=== PATIENT | female | born 1940 | race Caucasian/White ===

== ENCOUNTER 2020-01-17 09:49 | Emergency (ER) | payer OTHER, SELFPAY ==
--- NOTE | ~2020-01-17 | XR_ITS ---
EXAMINATION: XR chest 1V portable DATE: 01/17/2020 11:54 INDICATION: Altered mental status. Fall. TECHNIQUE: A single frontal view of the chest was obtained. COMPARISON: None. FINDINGS: There is mild scarring at the lung apices. The lungs are hyperexpanded with a diffuse inter stitial pattern, consistent with emphysema. There is a left hilar mass. No pleural effusion or pneumo thorax. The heart size is normal. IMPRESSION: 1. Left hilar mass suspicious for primary bronchogenic carcinoma. Chest CT is recommended. I called t his result to Dr. Villaseñor on 01/17/20 at 11:58 AM. Reviewed, dictated and finalized at location E. IMPRESSION: 1. Left hilar mass suspicious for primary bronchogenic carcinoma. Chest CT is r ecommended. I called this result to Dr. Villaseñor on 01/17/20 at 11:58 AM.
--- NOTE | ~2020-01-17 | XR_ITS ---
EXAMINATION: XR pelvis 1-2V DATE: 01/17/2020 11:54 INDICATION: Patient found down post unwitnessed fall with wounds on her back and right leg. Altered m ental status and unable to answer questions. TECHNIQUE: An anteroposterior view of the pelvis was obtained. COMPARISON: None. FINDINGS: Mild lower lumbar levocurvature with severe spondylosis. Normal alignment in the pelvis and bilateral hips. No fracture. Soft tissues are unremarkable. IMPRESSION: 1. No acute osseous abnormality. 2. Mild lower lumbar levocurvature with severe spondylosis. Reviewed, dictated and finalized at location A.
--- NOTE | ~2020-01-17 | CT_ITS ---
EXAMINATION: CT cervical spine wo con DATE: 01/17/2020 12:09 INDICATION: Neck injury. Fall. TECHNIQUE: Computed tomography (CT) of the cervical spine was performed without intravenous contrast. Automated exposure control and iterative reconstruction technique were employed. The dose-length pro duct was 101.23 mGy-cm. COMPARISON: Cervical spine radiographs 01/28/2014 FINDINGS: The visualized portions of the lung bases demonstrate emphysema. There is scarring at the l scot apices, right worse than left. There is a left mastoid effusion. C1 ring is ununited posteriorly, a normal variant. There is 5 degrees levocurvature of cervical spine. There is 3 mm anterolisthesis of C3 on C4 and 4 mm anterolisthesis of C4 on C5. Vertebral body heights are normal. There is mildly decreased disc height at C2-C3, C3-C4, and C4-C5. There is severely decreased disc height at C5-C6 an d C6-C7 with endplate remodeling. The following disc levels are specifically discussed: C2-C3: There is mild bilateral uncovertebral joint osteoarthritis. There is severe bilateral facet jabari int osteoarthritis. There is mild left neural foraminal stenosis. There is no central canal stenosis. C3-C4: There is mild bilateral uncovertebral joint osteoarthritis. There is severe bilateral facet jabari int osteoarthritis. There is mild left neural foraminal stenosis. There is mild central canal stenosi s. C4-C5: There is moderate bilateral uncovertebral joint osteoarthritis. There is severe bilateral face t joint osteoarthritis. There is mild bilateral neural foraminal stenosis. There is mild central gayle l stenosis. C5-C6: There is severe bilateral uncovertebral joint osteoarthritis. There is mild right and moderate left facet joint osteoarthritis. There is mild right and moderate left neural foraminal stenosis. Th ere is mild central canal stenosis. C6-C7: There is severe bilateral uncovertebral joint osteoarthritis. There is moderate bilateral face t joint osteoarthritis. There is mild bilateral neural foraminal stenosis. There is mild central gayle l stenosis. C7-T1: There is no uncovertebral joint osteoarthritis. There is severe bilateral facet joint osteoart hritis. There is mild left neural foraminal stenosis. There is no central canal stenosis. IMPRESSION: 1. No fracture. 2. Severe cervical spondylosis. 3. Emphysema. Reviewed, dictated and finalized at location E.
--- NOTE | ~2020-01-17 | CT_ITS ---
EXAMINATION: CT brain wo con DATE: 01/17/2020 12:08 INDICATION: Fall. TECHNIQUE: Computed tomography (CT) of the head was performed without intravenous contrast. The mA wa s adjusted according to patient size. Iterative reconstruction technique was employed. Exam dose: 60 5.33 mGy-cm total exam DLP. COMPARISON: None FINDINGS: There is a large up to 4.5 cm wide 5.3 cm anteroposterior dimension intracerebral hematoma involving the left temporal parietal area, with some adjacent hypoattenuation consistent with surroun ding edema. There is some subarachnoid blood on the left. There is associated prominent compression o f the left lateral ventricle and approximately 9 mm rightward subfalcine shift. Additionally, there i s effacement of the cortical sulci particularly high over the convexity. Bilateral carotid siphon internal carotid artery calcifications. There is nonspecific diminished attenuation of the cerebral white matter, likely due to chronic small vessel ischemic changes. No subdural or epidural hematoma. No skull fracture is detected. IMPRESSION: Large left cerebral hematoma with mass effect including up to 9 mm rightward subfalcine shift. There is subarachnoid blood as well. Dr. Ibanez telephoned the results on 01/17/2020 at 1220 hours to emergency room physician Dr. Villaseñor. Reviewed, dictated and finalized at Location [facility]. Reviewed, dictated and finalized at location A. IMPRESSION: Large left cerebral hematoma with mass effect including up to 9 mm rightward subfalcine shift. There is subarachnoid blood as well. Dr. Ibanez telephoned the results on 01/17/2020 at 1220 hours to emergency room ph ysician Dr. Villaseñor.
--- NOTE | 2020-01-17 10:56 | ECG_ITS ---
Measurements Intervals [place] Rate: 92 P: 85 [place]: 124 QRS: 84 QRSD: 110 T: 72 QT: 380 QTc: 472 Interpretive Statements SINUS RHYTHM LEFT ATRIAL ENLARGEMENT INCOMPLETE RIGHT BUNDLE BRANCH BLOCK ST-T WAVE ABNORMALITY IN ANTERIOR LEADS- CONSIDER ISCHEMIA ABNORMAL ECG Electronically Signed On 01-17-2020 11:37:30 CDT by dEy Lucio D.O.
[2020-01-17 11:22] LABS: Alveolar/Arterial O2 Gradient 40.9 mmHg; Base Excess ABG 1.7 mEq/l (+/-2.0); Carboxyhemoglobin 0.8 % THb (0-2.0); Device ROOM AIR; Fractional Inspired Oxygen 21 %; HCO3 ABG 25.4 mEq/l (22.0-26.0); Methemoglobin ABG 0.2 %THb (0-1.5); Oxygen Content ABG 17.7 %vol (16.0-22.0); Oxygen Saturation ABG 93.6 % (95.0-100.0); Oxyhemoglobin 90.4 % THb (90.0-100.0); PCO2 ABG 37.2 mmHg (35.0-45.0); PO2 ABG 64.3 mmHg (80.0-100.0); PO2 FiO2 Ratio Arterial Blood 3.06 %; Reduced Hemoglobin 8.6 %THb (0-5.0); Site Drawn RIGHT BRACHIAL; Total Hemoglobin 13.9 g/dL (12.0-18.0); pH ABG 7.453 (7.350-7.450)
[2020-01-17 11:23] LABS: Basophils Percent Auto 0.2 % (0.2-1.2); Eosinophils Percent Auto 0.1 % (0-4.4); Hematocrit 41.2 % (37.0-47.0); Hemoglobin 13.7 g/dL (12.0-15.0); Immature Granulocyte Absolute 0.49 K/mm3 (0.00-0.031); Immature Granulocyte Percent A 2.7 % (0-0.5); Lymphocytes Absolute Auto 0.98 K/mm3 (0.9-3.2); Lymphocytes Percent Auto 5.3 % (18.3-44.2); Mean Corpuscular HGB Conc 33.3 g/dl (32-36); Mean Corpuscular Hemoglobin 29.2 pg (26-34); Mean Corpuscular Volume 87.8 fl (80-100); Mean Platelet Volume 12.8 fl (7.4-10.4); Monocytes Absolute Auto 1.8 K/mm3 (0.1-0.6); Monocytes Percent Auto 9.6 % (2.6-8.5); Neutrophils Absolute Auto 15.1 K/mm3 (1.3-6.7); Neutrophils Percent Auto 82.1 % (45.5-73.1); Platelet Count Result 260 k/mm3 (150-375); Red Blood Count 4.69 M/mm3 (4.2-5.4); Red Cell Distribution Width 15.3 % (11.5-14.5); White Blood Count 18.4 K/mm3 (4.5-10.0)
[2020-01-17 11:32] LABS: INR 1.1; Prothrombin Time 13.6 Seconds (11.1-14.7)
[2020-01-17 11:33] LABS: Partial Thromboplastin Time 36.2 SECONDS (22.3-36.8)
[2020-01-17 11:37] LABS: Ammonia < 9 umol/L (9-30); Ethanol < 10 mg/dL (<10); Lactic Acid Reflex 2.1 mmol/L (0.7-2.1)
[2020-01-17 11:41] LABS: Alanine Aminotransferase 28 U/L (4-35); Albumin Level 3.8 g/dL (3.5-5.1); Alkaline Phosphatase 117 U/L (38-126); Aspartate Amino Transferase 79 U/L (14-36); Bilirubin,Total 0.5 mg/dL (0.2-1.3); Blood Urea Nitrogen 37 mg/dL (7-17); CRP 8.3 mg/dL (<1.0); Calcium 9.5 mg/dL (8.4-10.2); Carbon Dioxide 24 mmol/L (22-30); Chloride 106 mmol/L (98-107); Creatine Kinase 1513 U/L (30-135); Estimated CRCL calculation 44 ml/min; Estimated Glomerular Filt Rate > 60; Glucose 123 mg/dL (65-105); Magnesium 2.2 mg/dL (1.6-2.3); Potassium 3.9 mmol/L (3.4-5.0); Sodium 135 mmol/L (137-145)
[2020-01-17 11:50] LABS: NT Pro B Type Natriuretic Pept 724 PG/ML (5-100); Troponin I < 0.012 ng/mL (0.000-0.034)
--- NOTE | 2020-01-17 12:19 | ED.FALL ---
HPI - Fall General Chief Complaint: Fall Stated Complaint: WEAKNESS,SLURRED SPEECH Time Seen by Provider: 01/17/20 10:24 Source: EMS Mode of arrival: EMS Limitations: clinical condition History of Present Illness HPI Narrative: This patient is an 79 year old female who presents from home VIA EMS for evaluation of AMS and fall. Patient lives alone and she was last seen on Monday. Her neighbor found patient laying on the floor naked . Patient has slurred speech and right side weakness. PAtient is having aphasia so she is unable to give history. MD complaint: fall Related Data Allergies Allergy/AdvReac Type Severity Reaction Status Date / Time tetracycline Allergy Intermediate Verified 12/18/19 12:29 Review of Systems Review of Systems: ROS unobtainable: Yes unobtainable due to mental status [facility] Social History Social History (System 12/18/19 @ 12:29 by Marianela Flower) Gender identity (if verbalized by the patient): Female Comments Medical history unknown, Surgical history unknown. I spoke with a neighbor who states she has not kids and she has never been . Exam Const: General: no acute distress and alert Nutritional Appearance: thin HENMT: Head: No palpable skull fracture present, normocephalic and atraumatic Mouth: Yes dry mucous membranes Eyes: EOM: EOMs intact bilaterally Neck: Other: in cervical collar Chest: Chest palpation & inspection: normal inspection of the chest Resp: Effort & Inspection: no retractions and not tachypneic Auscultation: clear to auscultation bilaterally Cardio: Rate: regular rate Rhythm: regular rhythm Skin: Other: bruising to left arm Neuro: Cranial nerves: Yes Other cranial nerve findings present (mild right nasolabial flattening) Speech: Abnormal speech present slurred Details: expressive aphasia and Other speech findings present (Neuro) (she will say yes and when I told her she was being transferred she states ) Other: right arm flaccide Psych: Attitude: cooperative Course Consultations Consultation #1: I spoke with Stroke Attending Dr. Mckenzie who accepts patient to ER at [facility]. I also spoke with ED physician at [facility]. Date: 01/17/20 Time: 12:46 MDM - Fall Lab Data Attestation: I reviewed the patient's lab results. Result diagrams: 01/17/20 11:14 01/17/20 11:14 Labs: Lab Results 01/17/20 01/17/20 01/17/20 Range/Units 11:14 11:14 11:14 WBC 18.4 H (4.5-10.0) K/mm3 RBC 4.69 (4.2-5.4) M/mm3 Hgb 13.7 (12.0-15.0) g/dL Hct 41.2 (37.0-47.0) % MCV 87.8 (80-100) fl MCH 29.2 (26-34) pg MCHC 33.3 (32-36) g/dl RDW 15.3 H (11.5-14.5) % Plt Count 260 (150-375) k/mm3 MPV 12.8 H (7.4-10.4) fl Immature Gran % (Auto) 2.7 H (0-0.5) % Neut % (Auto) 82.1 H (45.5-73.1) % Lymph % (Auto) 5.3 L (18.3-44.2) % Dolores % (Auto) 9.6 H (2.6-8.5) % Eos % (Auto) 0.1 (0-4.4) % Baso % (Auto) 0.2 (0.2-1.2) % Lymph # (Auto) 0.98 (0.9-3.2) K/mm3 Dolores # (Auto) 1.8 H (0.1-0.6) K/mm3 Eos # (Auto) 0.0 (0-0.3) K/mm3 Baso # (Auto) 0.0 (0.0-0.1) K/mm3 Abs Immat Gran (auto) 0.49 H (0.00-0.031) K/mm3 Absolute Neuts (auto) 15.1 H (1.3-6.7) K/mm3 Absolute Nucleated RBC 0.0 (0.0-0.012) K/mm3 Nucleated RBC % 0.0 (0.0-0.2) % PT 13.6 (11.1-14.7) Seconds INR 1.1 APTT 36.2 (22.3-36.8) SECONDS Methemoglobin (0-1.5) %THb Sodium 135 L (137-145) mmol/L Potassium 3.9 (3.4-5.0) mmol/L Chloride 106 (98-107) mmol/L Carbon Dioxide 24 (22-30) mmol/L BUN 37 H (7-17) mg/dL Creatinine 0.70 (0.7-1.0) mg/dL Estim Creat Clear Calc 44 ml/min Estimated GFR > 60 (59 - ) Glucose 123 H (65-105) mg/dL Lactic Acid (0.7-2.1) mmol/L Calcium 9.5 (8.4-10.2) mg/dL Magnesium 2.2 (1.6-2.3) mg/dL Total Bilirubin 0.5 (0.2-1.3) mg/dL AST 79 H (14-36) U/L ALT 2
[2020-01-17 14:20] LABS: Reflex Lactic Acid Yes or No Add Lactic
== END 2020-01-17 13:06 | disposition short-term general hospital (02) ==
PROVIDERS: Emergency Provider General Practice
DX: S06.359A Traumatic hemorrhage of left cerebrum with loss of consciousness of unspecified duration, initial encounter (principal); J43.9 Emphysema, unspecified; I45.10 Unspecified right bundle-branch block; R94.31 Abnormal electrocardiogram [ECG] [EKG]; R91.8 Other nonspecific abnormal finding of lung field; M47.816 Spondylosis without myelopathy or radiculopathy, lumbar region; W19.XXXA Unspecified fall, initial encounter
CPT/HCPCS: 36415; 36600; 70450; 71045; 72125; 72170; 80053; 80307; 82140; 82375; 82550; 82805; 83050; 83605; 83735; 83880; 84484; 85025; 85610; 85730; 86140; 93005; 99285; J7030